=== PATIENT | female | born 1950 | race Two or more races ===

== ENCOUNTER 2017-03-01 09:46 | Outpatient (CLI) | payer OTHER | END 2017-03-01 09:48 | disposition home or self-care (01) | LOC: SONOGRAMA 09:46 → MAMO-SONO 10:45 | DX: N71.9 Inflammatory disease of uterus, unspecified (principal); N76.0 Acute vaginitis; E11.43 Type 2 diabetes mellitus with diabetic autonomic (poly)neuropathy ==

== ENCOUNTER 2018-02-03 07:02 | Day surgery (SDC) | payer OTHER | END 2018-02-03 09:37 | disposition home or self-care (01) | LOC: AMB-ENDOS 07:02 | DX: K64.8 Other hemorrhoids (principal); Z12.11 Encounter for screening for malignant neoplasm of colon ==

== ENCOUNTER → 2018-05-03 | Emergency (ER) | payer OTHER ==
[~2018-05-03] VITALS: Ht 154.9 cm; Wt 76.2 kg
[~2018-05-03] MED LIST: HYZAAR 100-12.1 EACH; JANUMET 50-1,01 EACH; TOPROL XL100 M1
== END | disposition home or self-care (01) ==
LOC: ER 15:17
DX: I16.0 Hypertensive urgency (principal); I10 Essential (primary) hypertension

== ENCOUNTER 2018-07-29 07:56 | Outpatient (CLI) | payer OTHER | END 2018-07-29 07:58 | disposition home or self-care (01) | LOC: MAMO-SONO 07:56 | DX: N63.11 Unspecified lump in the right breast, upper outer quadrant (principal); Z12.31 Encounter for screening mammogram for malignant neoplasm of breast; Z87.898 Personal history of other specified conditions ==

== ENCOUNTER → 2018-08-05 | Outpatient (CLI) | payer OTHER | END | disposition home or self-care (01) | LOC: NUCLEAR 13:00 | DX: M81.0 Age-related osteoporosis without current pathological fracture (principal) ==

== ENCOUNTER 2018-11-28 07:54 | Emergency (ER) | payer OTHER ==
[~2018-11-28] VITALS: Ht 162.6 cm; Wt 76.7 kg
== END 2018-11-28 12:44 | disposition home or self-care (01) ==
LOC: ER 07:54
DX: L03.818 Cellulitis of other sites (principal); B34.9 Viral infection, unspecified

== ENCOUNTER 2018-12-30 10:08 | Outpatient (CLI) | payer OTHER | END 2018-12-30 10:18 | disposition home or self-care (01) | LOC: LAB 10:08 | DX: E03.8 Other specified hypothyroidism (principal); I10 Essential (primary) hypertension; E11.9 Type 2 diabetes mellitus without complications; E78.2 Mixed hyperlipidemia ==

== ENCOUNTER → 2018-12-31 | Outpatient (CLI) | payer OTHER | END | disposition home or self-care (01) | LOC: SONOGRAMA 09:58 | DX: E03.8 Other specified hypothyroidism (principal); E04.2 Nontoxic multinodular goiter ==

== ENCOUNTER 2019-03-06 09:03 | Outpatient (CLI) | payer OTHER | END 2019-03-06 09:07 | disposition home or self-care (01) | LOC: SONOGRAMA 09:03 → MAMO-SONO 09:15 | DX: R10.84 Generalized abdominal pain (principal) ==

== ENCOUNTER 2019-06-29 13:51 | Emergency (ER) | payer OTHER ==
[~2019-06-29] VITALS: Ht 162.6 cm; Wt 68.0 kg
== END 2019-06-29 15:29 | disposition home or self-care (01) ==
LOC: ER 13:51
DX: S70.01XS Contusion of right hip, sequela (principal); W18.09XS Striking against other object with subsequent fall, sequela

== ENCOUNTER 2020-05-10 15:07 | Outpatient (CLI) | payer OTHER | END 2020-05-10 15:29 | disposition home or self-care (01) | LOC: OFIC 805 15:07 | PROVIDERS: ATTEND Otolaryngology Otology & Neurotology | DX: J30.89 Other allergic rhinitis (principal) ==

== ENCOUNTER 2020-06-17 10:10 | Emergency (ER) | payer OTHER ==
[~2020-06-17] VITALS: Ht 154.9 cm; Wt 72.1 kg
[2020-06-17] MEDS ORDERED: SYNTHROID50 MCG PO (10:44)
== END 2020-06-17 22:42 | disposition home or self-care (01) ==
LOC: ER 10:10
DX: E87.6 Hypokalemia (principal); N93.8 Other specified abnormal uterine and vaginal bleeding; R10.32 Left lower quadrant pain

== ENCOUNTER 2020-08-24 14:56 | Outpatient (CLI) | payer OTHER ==
[~2020-08-24 14:56] MED LIST changes: +SYNTHROID50 MCG PO
== END 2020-08-24 14:57 | disposition home or self-care (01) ==
LOC: MAMO-SONO 14:56
PROVIDERS: ATTEND Internal Medicine Cardiovascular Disease
DX: Z12.31 Encounter for screening mammogram for malignant neoplasm of breast (principal); Z87.898 Personal history of other specified conditions; N64.59 Other signs and symptoms in breast

== ENCOUNTER → 2020-09-01 13:50 | Outpatient (CLI) | payer OTHER | END | disposition home or self-care (01) | LOC: NUCLEAR 13:50 | PROVIDERS: ATTEND Internal Medicine Cardiovascular Disease | DX: M81.0 Age-related osteoporosis without current pathological fracture (principal); E55.9 Vitamin D deficiency, unspecified ==

== ENCOUNTER 2020-12-06 07:00 | Outpatient (CLI) | payer OTHER | END 2020-12-06 07:15 | disposition home or self-care (01) | LOC: PPH VACUNA 07:00 | PROVIDERS: ATTEND Emergency Medicine Pediatric Emergency Medicine | DX: Z23 Encounter for immunization (principal) ==

== ENCOUNTER 2025-02-06 19:02 | Emergency (ER) | payer OTHER ==
[~2025-02-06] VITALS: Ht 157.5 cm; Wt 69.9 kg
[2025-02-07] MEDS ORDERED: METFORMIN HCL500 M3 PO (09:10)
== END 2025-02-07 03:06 | disposition left against medical advice (07) ==
LOC: ER 19:03
DX: R50.9 Fever, unspecified (principal); I10 Essential (primary) hypertension; E11.9 Type 2 diabetes mellitus without complications; Z79.84 Long term (current) use of oral hypoglycemic drugs

== ENCOUNTER 2025-02-07 08:42 | Emergency (ER) | payer OTHER ==
[~2025-02-07] VITALS: Ht 157.5 cm; Wt 69.9 kg
[2025-02-07] MEDS ORDERED: METFORMIN HCL500 M3 PO (09:10)
[2025-02-07] MEDS ORDERED: INSULIN LISPRO 1,000 UNIT/10 ML UNITS SUBCUTANEO ONE (09:30)
[2025-02-07] MEDS ORDERED: 0.9 % SODIUM CHLORIDE 500 ML IV ONE (09:30)
[2025-02-07 10:55] LABS: BASO % 0.3 % (0.1-1.2); EOS # 0.02 (0.04-0.54); EOS % 0.3 % (0.7-7.0); LYMPH # 2.11 (1.18-3.74); LYMPH % 31.5 % (19.3-53.1); MEAN PLATELET VOLUME 9.90 fl (9.4-12.4); MONO # 1.85 (0.24-0.82); NEUT # 2.63 (1.56-6.13); NEUT % 39.3 % (34.0-71.1); RED CELL DISTRIBUTION WIDTH 17.8 % (11.6-14.4)
[2025-02-07 10:59] LABS: MONO % 27.7 % (4.7-12.5)
[2025-02-07 11:09] LABS: URINE APPEARANCE Clear; URINE BILIRRUBIN Negative (NEGATIVE); URINE BLOOD Negative; URINE COLOR Yellow; URINE GLUCOSE Negative (NEGATIVE); URINE KETONE Trace (NEGATIVE); URINE LEUKOCYTE Trace; URINE NITRATE Negative; URINE PROTEIN Negative (NEGATIVE); URINE UROBILINOGEN 0.2 E.U./dl
[2025-02-07 11:10] LABS: URINE BACTERIA 20.5 uL (0.0-1933); URINE EPITHELIAL CELLS 3.5 uL (0.0-38.8); URINE RBC 2.9 uL (0.0-20.8); URINE WBC 4.8 uL (0.0-23.2)
[2025-02-07 11:12] LABS: URINE CAST 0.56 uL (0.0-1.40)
[2025-02-07 11:45] LABS: COVID-19 AG NEGATIVE (NEGATIVE)
[2025-02-07 11:46] LABS: ALT/SGPT 20.0 U/L (12-78); AST/SGOT 30.0 U/L (15-37); BILIRUBIN TOTAL 1.32 mg/dL (0.3-1.2); BUN CREA RATIO 20.0 (7.0-25.0); CREATININE SERUM 0.7 mg/dL (0.55-1.02); GFR 82.02; GLOBULINA 3.6 G/DL (2.4-3.5)
[2025-02-07 11:50] LABS: OSMOLALITY SERUM 280.0 MOSM/KG (275-295)
[2025-02-07 11:51] LABS: BAND MAN 2.0 %; GLUCOSE FASTING 235.0 mg/dL (65-100); LYMPHOCYTE MAN 20.0 %; METAMYELOCYTE 1.0 %; MONOCYTE MAN 24.0 %; NEUTROPHILS MAN 44.0 %
[2025-02-07 11:52] LABS: BLAST MAN 2.0 %; MYELOCYTE 1.0 %
[2025-02-08 02:17] VITALS: BP 119/65; O2SAT 98
== END 2025-02-08 02:19 | disposition designated cancer center or children's hospital (05) ==
LOC: ER 08:43
PROVIDERS: Emergency Medicine
DX: D75.89 Other specified diseases of blood and blood-forming organs (principal); R53.1 Weakness; E11.9 Type 2 diabetes mellitus without complications; Z79.84 Long term (current) use of oral hypoglycemic drugs; I10 Essential (primary) hypertension; D64.89 Other specified anemias; D69.6 Thrombocytopenia, unspecified; Z20.822 Contact with and (suspected) exposure to COVID-19
CPT/HCPCS: 36415; 36430; 96365; 99283; J7030; P9021